=== PATIENT | female | born 1995 | race Caucasian/White ===

== ENCOUNTER 2021-08-19 09:41 | Outpatient (CLI) | payer OTHER | END 2021-08-19 09:42 | disposition home or self-care (01) | LOC: CSHULT 09:41 | PROVIDERS: ATTEND Family Medicine | DX: Z34.02 Encounter for supervision of normal first pregnancy, second trimester (principal); Z3A.19 19 weeks gestation of pregnancy | CPT/HCPCS: 76805 ==

== ENCOUNTER 2021-11-09 11:11 | Day surgery (SDC) | payer OTHER ==
[2021-11-09] MEDS ORDERED: hydrALAZINE 20 MG/ML VIAL SLOW IVP PRN (12:10)
[2021-11-09] MEDS ORDERED: Lactated Ringer's 1,000 ML IV SCH ×2 (12:15→12:45)
[2021-11-09 12:32] VITALS: BMI 25.9
== END 2021-11-09 14:36 | disposition home health service (06) ==
LOC: CSHLD/OP 11:11
PROVIDERS: ATTEND Obstetrics & Gynecology
DX: O47.03 False labor before 37 completed weeks of gestation, third trimester (principal); O99.283 Endocrine, nutritional and metabolic diseases complicating pregnancy, third trimester; E86.0 Dehydration; Z3A.32 32 weeks gestation of pregnancy
CPT/HCPCS: 96360; 96361; 99283

== ENCOUNTER 2022-01-04 05:30 | Inpatient (IN) | payer OTHER ==
[2022-01-04 06:27] VITALS: BMI 26.6
[2022-01-04] MEDS ORDERED: NS w/ Oxytocin 30 units 500 ML IV SCH ×2 (06:28)
[2022-01-04] MEDS ORDERED: Carboprost 250 MCG/ML AMP IM PRN (06:28)
[2022-01-04] MEDS ORDERED: hydrALAZINE 20 MG/ML VIAL SLOW IVP PRN (06:28)
[2022-01-04] MEDS ORDERED: Diphenoxylate HCl/Atropine Tablet PO PRN (06:28)
[2022-01-04] MEDS ORDERED: Ibuprofen 800 MG TAB PO PRN (06:28)
[2022-01-04] MEDS ORDERED: Butorphanol Tartrate 1 MG/ML VIAL SLOW IVP PRN (06:28)
[2022-01-04] MEDS ORDERED: Promethazine HCl 25 MG/ML VIAL IM PRN ×3 (06:28→20:30)
[2022-01-04] MEDS ORDERED: Methylergonovine 0.2 MG/ML VIAL IM PRN (06:28)
[2022-01-04] MEDS ORDERED: Ondansetron PF 4 MG/2 ML Vial IVP PRN ×3 (06:28→20:30)
[2022-01-04] MEDS ORDERED: Lidocaine 1% (PF) 30 ML VIAL SC PRN (06:28)
[2022-01-04] MEDS ORDERED: Misoprostol 200 MCG TAB PR PRN (06:28)
[2022-01-04 07:06] LABS: Hemoglobin 11.4 g/dL (12.0-15.5); Mean Corpuscular HGB CONC 35.2 g/dL (32.0-36.0); Mean Corpuscular Hemoglobin 32.6 pg (27.0-33.0); Mean Corpuscular Volume 92.6 fl (81.6-98.3); Mean Platelet Volume 10.6 fl (7.4-10.4); Platelet Count 245 10x3/uL (150-450); RBC Distribution Width 12.2 % (11.5-14.5); White Blood Cell (WBC) Count 10.8 10x3/uL (3.5-10.5)
[2022-01-04] MEDS: Lactated Ringer's 1,000 ML IV SCH ×2 (07:24→13:00)
[2022-01-04] MEDS ORDERED: Fentanyl 2 mcg/Bup 0.1% Cadd 100 ML ONE (07:48)
[2022-01-04] MEDS ORDERED: Bupivacaine PF 0.5% 30 ML VIAL ONE (08:00)
[2022-01-04] MEDS ORDERED: ePHEDrine Sulfate 50 MG/10 ML VIAL ONE (08:00)
[2022-01-04] MEDS ORDERED: ePHEDrine Sulfate 50 MG/10 ML VIAL SLOW IVP PRN (08:39)
[2022-01-04] MEDS ORDERED: Moisturizing Cream (Eucerin) 113 GM JAR TOP PRN (08:39)
[2022-01-04] MEDS ORDERED: diphenhydrAMINE 50 MG/ML VIAL IVP PRN (08:39)
[2022-01-04] MEDS ORDERED: Lactated Ringer's 500 ML IV PRN (08:39)
[2022-01-04] MEDS ORDERED: Naloxone HCl 0.4 mg/ml Vial IVP PRN ×2 (08:39)
[2022-01-04] MEDS ORDERED: Communication Order-Pharmacy FS SCH (08:45)
[2022-01-04] MEDS ORDERED: Fentanyl 2 mcg/Bupivacaine 0.1% Cassette 100 ML EPIDURAL SCH (08:45)
[2022-01-04 10:23] LABS: Hep B Surf Ag Non-Reactive S/CO (NonReactive)
[2022-01-04 10:27] LABS: Syphilis Antibody Nonreactive (Nonreactive); Syphilis Antibody Index 0.04 S/CO (<1.00 Non-Reactive)
[2022-01-04 12:02] LABS: SARS-CoV-2 NAA Rapid Test Not Detected (NotDetected)
[2022-01-04] MEDS ORDERED: Benzocaine-Menthol 82.5 ML CAN TOP PRN (20:30)
[2022-01-04] MEDS ORDERED: hydrALAZINE 20 MG/ML VIAL SLOW IVP SCH (20:30)
[2022-01-04] MEDS ORDERED: Boostrix 0.5 ML (Tdap) VIAL (>/=7 yrs of age) IM SCH (20:30)
[2022-01-04] MEDS ORDERED: diphenhydrAMINE 25 MG CAP PO PRN (20:30)
[2022-01-04] MEDS ORDERED: NS w/ Oxytocin 30 units 500 ML IVPB SCH (20:30)
[2022-01-04] MEDS ORDERED: Lanolin Ointment 7 GM TUBE TOP PRN (20:30)
[2022-01-04] MEDS ORDERED: Milk Of Magnesia 30 ML UDCUP PO PRN (20:30)
[2022-01-04] MEDS ORDERED: Bisacodyl 10 MG SUPP PR PRN (20:30)
[2022-01-04] MEDS ORDERED: HYDROcodone/Acetaminophen 5/325 mg Tablet PO PRN ×2 (20:30)
[2022-01-04] MEDS: Docusate Calcium (SURFAK) 240 MG CAP PO SCH (23:21)
[2022-01-04] MEDS: Ibuprofen 800 MG TAB PO SCH (23:21)
[2022-01-05] MEDS: Lactated Ringer's 1,000 ML IV SCH ×3 (04:48→20:43)
[2022-01-05] MEDS: Ibuprofen 800 MG TAB PO SCH ×3 (05:08→21:06)
[2022-01-05] MEDS: Ferrous Sulfate 325 MG TAB PO SCH (07:11)
[2022-01-05] MEDS: Docusate Calcium (SURFAK) 240 MG CAP PO SCH ×2 (09:35→22:11)
[2022-01-05] MEDS: Prenatal Vitamin 1 TAB PO SCH (09:35)
[2022-01-05] MEDS ORDERED: Witch Hazel-Glycerin 1 EACH JAR TOP PRN (16:48)
[2022-01-06] MEDS: Ibuprofen 800 MG TAB PO SCH ×2 (04:36→14:19)
[2022-01-06 07:28] VITALS: BP 119/68; TEMP 98.5
[2022-01-06] MEDS: Lactated Ringer's 1,000 ML IV SCH (09:11)
[2022-01-06] MEDS: Ferrous Sulfate 325 MG TAB PO SCH (09:11)
[2022-01-06] MEDS: Docusate Calcium (SURFAK) 240 MG CAP PO SCH (09:12)
[2022-01-06] MEDS: Prenatal Vitamin 1 TAB PO SCH (09:12)
== END 2022-01-06 14:40 | disposition home or self-care (01) | DRG 807 ==
LOC: CSHLD 06:06 → CSHPP 22:00
PROVIDERS: ADMIT Family Medicine; ATTEND Family Medicine
PROC: 10E0XZZ Delivery of Products of Conception, External Approach (ICD-10-PCS; principal; 2022-01-04)
PROC: 0KQM0ZZ Repair Perineum Muscle, Open Approach (ICD-10-PCS; 2022-01-04)
PROC: 10907ZC Drainage of Amniotic Fluid, Therapeutic from Products of Conception, Via Natural or Artificial Opening (ICD-10-PCS; 2022-01-04)
PROC: 3E033VJ Introduction of Other Hormone into Peripheral Vein, Percutaneous Approach (ICD-10-PCS; 2022-01-04)
DX: O69.81X0 Labor and delivery complicated by cord around neck, without compression, not applicable or unspecified (principal); Z37.0 Single live birth; O70.1 Second degree perineal laceration during delivery; Z3A.40 40 weeks gestation of pregnancy; Z88.8 Allergy status to other drugs, medicaments and biological substances; Z20.822 Contact with and (suspected) exposure to COVID-19
CPT/HCPCS: 36415; 51702; 85027; 86780; 86850; 86900; 86901; 87340; J2405; J2590; J7120; S0020; U0002

== ENCOUNTER 2023-08-20 10:03 | Emergency (ER) | payer MEDICAID, OTHER ==
[2023-08-20 12:03] LABS: SARS-CoV-2 E Target Positive; SARS-CoV-2 N2 Target Positive; SARS-CoV-2 NAA Rapid Test DETECTED (NotDetected); SARS-CoV-2 RdRP gene Positive
[2023-08-20 12:05] LABS: Bilirubin Neg (Negative); Blood, Urine Negative (Negative); Clarity Clear (Clear); Glucose, Urine (Dipstick) Normal (Negative); Ketone, Urine 150 mg/dL (Negative); Leukocyte Negative (Negative); Nitrite Negative (Negative); Protein, Urine (Dipstick) 15 mg/dl (Neg-Trace); Specific Gravity, Urine 1.015 (1.005-1.030); Urobilinogen Normal mg/dL (Less than 2)
[2023-08-20 12:17] LABS: CAUTI Indications for Culture Dysuria,urgency,freq; RBC/HPF 0-3 HPF (0-3); Squamous Epithelial 0-3 HPF (0-3); WBC/HPF 0-3 HPF (0-3)
[2023-08-20 12:18] LABS: Bacteria/HPF Rare-Few HPF (None Seen); Mucous/LPF 1+ LPF (<2+)
[2023-08-20 12:19] LABS: Urine Culture Reflex No No
== END 2023-08-20 12:29 | disposition home or self-care (01) ==
LOC: CSHERS 10:03
DX: U07.1 COVID-19 (principal); F17.210 Nicotine dependence, cigarettes, uncomplicated
CPT/HCPCS: 81001; 87804; 99284; U0002